=== PATIENT | male | born 1955 | race Caucasian/White ===

== ENCOUNTER 2017-11-03 15:44 | Inpatient (IN) | payer OTHER ==
[~2017-11-03] VITALS: Ht 180.3 cm; Wt 113.6 kg
--- NOTE | ~2017-11-03 | EKG ---
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 : 1955 Requested By: Sujit Escobar Order Number: [id number] MD: Sujit Escobar Measurements Intervals [place] Rate: 85 P: 48 ND: 162 QRS: 111 QRSD: 95 T: 26 QT: 367 QTc: 437 Interpretive Statements Sinus rhythm Right ventricular conduction delay Borderline T abnormalities, anterior leads Compared to ECG 08/16/2013 01:37:21 No significant change was found Electronically Signed On 11-04-2017 17:17:17 CDT by Sujit Escobar [email or web address] <ELECTRONICALLY SIGNED> By: Sujit Escobar MD, [facility] [id number] Sujit Escobar MD, [facility] /EPI
--- NOTE | ~2017-11-03 | EKG ---
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
--- NOTE | ~2017-11-03 | HC ---
[facility] [address] [place] [address] CONSULTATION Name: CAIN ALEX BRAULIO Room #: 240-[facility] IN .R.#: [id number] Admission: 11/03/17 Attend Phys: Jorge Javier MD Discharge: Date of : 55 Report #: [id number] THIS REPORT FOR: //name// CC: CHRISSY physician/PCP Jorge Javier DATE OF SERVICE: 11/03/2017 REASON FOR CONSULTATION: Chest pain. HISTORY OF PRESENT ILLNESS: The patient is a 62-year-old gentleman with a history of coronary artery disease with remote limited inferior myocardial infarction with stenting many years ago. His history includes hypertension, tobacco dependency and dyslipidemia. He recently has developed midsternal chest tightness radiating to his back and down his left arm with activity such as walking at [employer]. The symptom has become progressive. To complicate matters, the patient has a large kidney stone and plans are underway for resection, although he thought it is important to evaluate his coronary status prior to urologic evaluation. He does describe intermittent gross hematuria. Outpatient angiography today demonstrated critical distal left main stenosis of 95%. There was severe ostial circumflex disease and severe dominant mid right coronary disease with normal left ventricular systolic function. He is now admitted for consideration of surgical revascularization. There have been no heart failure symptoms including orthopnea, paroxysmal nocturnal dyspnea or lower extremity edema. Unfortunately, he continues to smoke cigarettes. He has been off of all prescription medicines including statins for many years. His outpatient evaluation has included an echocardiogram, which demonstrates normal left ventricular systolic function and mild plaquing in his carotid tree. ALLERGIES: No known drug allergies. RECENT MEDICATIONS: Include isosorbide 30 mg daily, metoprolol succinate 25 mg daily, aspirin, atorvastatin 40 mg daily, Flomax 0.4 mg daily, lvig-dga-dqsrsnh niacin and aspirin. PAST MEDICAL HISTORY: Medical records have been reviewed and include history of dyslipidemia, hypertension, probable COPD. SOCIAL HISTORY: He is an ongoing smoker, 2 packs a day. FAMILY HISTORY: Mother had coronary stents. Father had coronary stents. REVIEW OF SYSTEMS: All systems negative except as that noted above. PHYSICAL EXAMINATION: [facility] [address] [place] [address] CONSULTATION Name: CAIN ALEX BRAULIO Room #: 240-P [facility] IN ..#: [id number] Admission: 11/03/17 Attend Phys: Jorge Javier MD Discharge: Date of : 55 Report #: [id number] GENERAL: This is a pleasant gentleman who is alert, in no distress. VITAL SIGNS: Blood pressure is 112/70, heart rate of 83 and regular, 6 feet tall, 250 pounds. HEENT: There are neither xanthelasma, subcutaneous xanthomata, oral mucosal, digital cyanosis or kyphoscoliosis present. CHEST: Clear to auscultation and percussion. CARDIAC: Regular rate and rhythm with normal S1, S2. No murmurs, rubs. ABDOMEN: Soft and nontender. EXTREMITIES: Without cyanosis, clubbing or edema. Radial pulses are 2+. NEUROLOGIC: Alert with a nonfocal exam. LABORATORY DATA: Recent lipid profile: Total cholesterol 219, LDL 156, HDL 26, triglycerides 182. EKG sinus rhythm, normal tracing. IMPRESSION: 1. Progressive angina pectoris. 2. Severe distal left main stenosis with multivessel coronary artery disease; normal ejection fraction. 3. Hypertension. 4. Dyslipidemia. 5. Tobacco dependency. 6. Nephrolithiasis with hematuria. RECOMMENDATIONS: 1. Continued use of aspirin, beta blockade, nitrates, statin therapy. 2. Surgical evaluation for critical, life threatening coronary artery disease. <ELECTRONICALLY SIGNED> By: Sujit Escobar MD, FACC 11/04/17 1534 1715 2244 Sujit Escobar MD, FACC /nt
--- NOTE | ~2017-11-03 | EKG ---
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 : 1955 Requested By: Sujit Escobar Order Number: [id number] MD: Sujit Escobar Measurements Intervals [place] Rate: 90 P: 58 NE: 153 QRS: 70 QRSD: 101 T: 11 QT: 360 QTc: 441 Interpretive Statements Sinus rhythm Atrial premature complex Borderline T abnormalities, inferior leads Baseline wander in lead(s) I,II,aVR,V3 Compared to ECG 11/05/2017 08:26:56 Atrial premature complex(es) now present Electronically Signed On 11-08-2017 9:00:37 CDT by Sujit Escobar [email or web address] <ELECTRONICALLY SIGNED> By: Sujit Escobar MD, [facility] 11/08/1700 6 6 Sujit Escobar MD, [facility] /EPI
--- NOTE | ~2017-11-03 | EKG ---
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 : 1955 Requested By: Josefina Ruiz Order Number: [id number] MD: Sujit Escobar Measurements Intervals [place] Rate: 78 P: 58 NM: 148 QRS: 61 QRSD: 103 T: 29 QT: 382 QTc: 436 Interpretive Statements Sinus rhythm Nonspecific T abnormalities, anterior leads Compared to ECG 11/04/2017 16:30:50 T-wave abnormality now present Electronically Signed On 11-05-2017 12:21:51 CDT by Sujit Escobar [email or web address] <ELECTRONICALLY SIGNED> By: Sujit Escobar MD, [facility] 11/05/17 1221 5 5 Sujit Escobar MD, [facility] /EPI
--- NOTE | ~2017-11-03 | EKG ---
[address] [place] [address] ELECTROCARDIOGRAM REPORT Name: CAIN ALEX Room #: 215-P ADM IN M.R.#: [id number] Admission: 11/03/17 Attend Phys: Jorge Javier MD Discharge: Date of : 55 Report #: [id number] THIS REPORT FOR: //name// [facility] Test Date: 2017-11-08 Test Time: 06:05:52 Pat Name: CAIN ALEX Department: Room: 215 P Gender: M Supervisor Cutting Department: JACK : 1955 Requested By: Sujit Escobar Order Number: [id number] MD: Sujit Escobar Measurements Intervals [place] Rate: 81 P: 55 [place]: 148 QRS: 74 QRSD: 102 T: 24 QT: 373 QTc: 433 Interpretive Statements Sinus rhythm Nonspecific T wave abnormality Compared to ECG 11/05/2017 08:26:56 No significant change was found Electronically Signed On 11-08-2017 9:12:55 CDT by Sujit Escobar [email or web address] <ELECTRONICALLY SIGNED> By: Sujit Escobar MD, [facility] 11/08/1712 4 4 Sujit Escobar MD, FACC /EPI
--- NOTE | ~2017-11-03 | EKG ---
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
[~2017-11-03 15:44] MED LIST: ANALGESIC325 MG PO; BP MED PO; FISH OIL 1,2001 EAC3 PO; FLONASE 0.05%50 MCG NASAL; LIPITOR20 MG PO; LISINOPRIL10 MG PO; LISINOPRIL5 MG PO; NIACIN 500 MG500 M1 PO; NITROGLYCERIN0.4 MG; ZOCOR40 MG PO; ZPAK PO
[2017-11-03 18:32] LABS: ABSOLUTE NEUTROPHILS 8.3 thou/uL (1.4-8.2); BASOPHILS 0.9 % (0.0-2.0); EOSINOPHILS 1.8 % (0.0-3.0); HEMATOCRIT 48.1 % (42.0-52.0); HEMOGLOBIN 15.8 gm/dL (14.0-18.0); LYMPHOCYTES 23.1 % (24.0-44.0); MCHC 32.9 g/dL (28.0-37.0); MCV 91.1 fL (80.0-100.0); MONOCYTES 8.1 % (1.0-8.0); PLATELET COUNT 363 thou/uL (150-400); POLYS 66.1 % (36.0-66.0); RBC 5.28 mil/uL (4.50-6.00); RDW 13.6 % (10.5-14.5); WBC 12.6 thou/uL (4.0-11.0)
[2017-11-03 18:48] LABS: ALBUMIN 3.3 g/dL (3.4-5.0); ANION GAP 9 mmol/L (7-16); BUN 21 mg/dL (7-18); CHLORIDE 108 mmol/L (98-107); CHOLESTEROL 175 mg/dL (<200); CO2 26 mmol/L (21-32); CREATININE 1.2 mg/dL (0.7-1.3); GLUCOSE 128 mg/dL (74-106); HDL CHOLESTEROL 21 mg/dL (>40); LDL CHOLESTEROL 107 mg/dL (<100); POTASSIUM 3.8 mmol/L (3.5-5.1); SGOT 14 U/L (15-37); SGPT 27 U/L (30-65); SODIUM 143 mmol/L (136-145); TC:HDL 8.3 Ratio (Not establshd); TOTAL BILIRUBIN 0.7 mg/dL (<0.1-1.0); TRIGLYCERIDE 235 mg/dL (<150); VLDL 47 mg/dL (<40)
[2017-11-03 19:07] VITALS: BP 119/39
[2017-11-03 19:32] LABS: APTT 26.7 Seconds (24.5-32.8)
[2017-11-03 19:33] LABS: URINE BILIRUBIN NEGATIVE (Negative); URINE BLOOD 3+ (Negative); URINE CLARITY CLEAR; URINE COLOR YELLOW; URINE GLUCOSE-RANDOM* NEGATIVE (Negative); URINE KETONES NEGATIVE (Negative); URINE LEUKOCYTES-REFLEX NEGATIVE (Negative); URINE NITRITE-REFLEX NEGATIVE (Negative); URINE PROTEIN (DIPSTICK) NEGATIVE (Negative); URINE SPECIFIC GRAVITY 1.025 (1.005-1.035); URINE UROBILINOGEN 0.2 E.U./dl (0.2-1.0)
[2017-11-03 19:43] LABS: CASTS None Seen /LPF (None Seen); MUCUS >6 Heavy strn/LPF (None Seen); SQUAMOUS 4-10 Moderate /LPF (0-3)
[2017-11-03 19:44] LABS: BACTERIA-REFLEX None Seen /HPF (None Seen); CRYSTALS None Seen /LPF (None Seen); URINE WBC-REFLEX 0-5 Rare /HPF (0-5)
[2017-11-03] MEDS ORDERED: TOPROL XL25 MG PO ×2 (20:41→20:45)
[2017-11-03] MEDS ORDERED: IMDUR 30 MG TAB30 M1 PO (20:46)
[2017-11-03] MEDS ORDERED: FLOMAX0.4 MG PO (20:47)
[2017-11-04] VITALS: BP 105/61; BP 118/77
[2017-11-04 04:54] VITALS: BP 108/63; BP 114/55
[2017-11-04 04:54] LABS: CALCIUM 8.8 mg/dL (8.5-10.1); POTASSIUM 4.1 mmol/L (3.5-5.1)
[2017-11-04 05:08] LABS: ABSOLUTE NEUTROPHILS 7.4 thou/uL (1.4-8.2); BASOPHILS 0.5 % (0.0-2.0); EOSINOPHILS 1.9 % (0.0-3.0); HEMATOCRIT 47.5 % (42.0-52.0); HEMOGLOBIN 15.5 gm/dL (14.0-18.0); LYMPHOCYTES 29.1 % (24.0-44.0); MCHC 32.7 g/dL (28.0-37.0); MCV 91.7 fL (80.0-100.0); MONOCYTES 7.9 % (1.0-8.0); PLATELET COUNT 346 thou/uL (150-400); POLYS 60.6 % (36.0-66.0); RBC 5.18 mil/uL (4.50-6.00); RDW 13.8 % (10.5-14.5); WBC 12.1 thou/uL (4.0-11.0)
[2017-11-04 07:15] LABS: GLYCOHEMOGLOBIN (HGB A1C) 5.8 % (4.8-5.6)
[2017-11-04 13:20] LABS: MCH 30.1 pg (26.0-34.0); MCHC 32.8 g/dL (28.0-37.0); MCV 91.8 fL (80.0-100.0); RBC 4.26 mil/uL (4.50-6.00); RDW 13.4 % (10.5-14.5); WBC 21.2 thou/uL (4.0-11.0)
[2017-11-04 13:22] LABS: HEMATOCRIT 39.1 % (42.0-52.0); HEMOGLOBIN 12.8 gm/dL (14.0-18.0)
[2017-11-04 13:38] LABS: INR 1.2
[2017-11-04 13:39] LABS: PROTIME 12.6 Seconds (9.3-11.4)
[2017-11-04 13:40] LABS: APTT 25.8 Seconds (24.5-32.8); FIBRINOGEN 264.1 mg/dL (210-360)
[2017-11-04 14:22] LABS: POC BE 2 mmol/L (-2.0 to +3.0); POC CA IONIZED 4.5 mg/dL (4.5-5.3); POC GLUCOSE 120 mg/dL (70-99); POC HCO3 28.2 mmol/L (22.0-26.0); POC POTASSIUM 4.4 mmol/L (3.5-5.1); POC SODIUM 141 mmol/L (136-145); POC pCO2 52.3 mmHg (35.0-45.0)
[2017-11-04 14:22] LABS: POC BE 1 mmol/L (-2.0 to +3.0); POC CA IONIZED 4.6 mg/dL (4.5-5.3); POC GLUCOSE 126 mg/dL (70-99); POC HEMOGLOBIN 14.6 g/dL (14.0-18.0); POC POTASSIUM 4.6 mmol/L (3.5-5.1); POC SODIUM 140 mmol/L (136-145); POC pCO2 51.1 mmHg (35.0-45.0); POC pH 7.331 (7.360-7.450)
[2017-11-04 14:23] LABS: POC BE -1 mmol/L (-2.0 to +3.0); POC CA IONIZED 5.8 mg/dL (4.5-5.3); POC GLUCOSE 152 mg/dL (70-99); POC HCO3 25.6 mmol/L (22.0-26.0); POC HEMOGLOBIN 12.2 g/dL (14.0-18.0); POC POTASSIUM 4.5 mmol/L (3.5-5.1); POC SODIUM 137 mmol/L (136-145); POC pCO2 50.8 mmHg (35.0-45.0)
[2017-11-04 14:23] LABS: POC BE -1 mmol/L (-2.0 to +3.0); POC CA IONIZED 4.2 mg/dL (4.5-5.3); POC GLUCOSE 170 mg/dL (70-99); POC HCO3 25.5 mmol/L (22.0-26.0); POC HEMOGLOBIN 13.9 g/dL (14.0-18.0); POC POTASSIUM 5.4 mmol/L (3.5-5.1); POC SODIUM 139 mmol/L (136-145); POC pCO2 53.5 mmHg (35.0-45.0); POC pH 7.286 (7.360-7.450)
[2017-11-04 14:23] LABS: POC BE -11 mmol/L (-2.0 to +3.0); POC CA IONIZED 2.6 mg/dL (4.5-5.3); POC GLUCOSE 100 mg/dL (70-99); POC HCO3 15.7 mmol/L (22.0-26.0); POC HEMOGLOBIN 8.2 g/dL (14.0-18.0); POC POTASSIUM 2.5 mmol/L (3.5-5.1); POC SODIUM 154 mmol/L (136-145); POC pCO2 33.7 mmHg (35.0-45.0); POC pH 7.275 (7.360-7.450)
[2017-11-04 14:23] LABS: POC BE 2 mmol/L (-2.0 to +3.0); POC CA IONIZED 4.2 mg/dL (4.5-5.3); POC GLUCOSE 151 mg/dL (70-99); POC HCO3 27.3 mmol/L (22.0-26.0); POC HEMOGLOBIN 11.6 g/dL (14.0-18.0); POC POTASSIUM 5.4 mmol/L (3.5-5.1); POC SODIUM 137 mmol/L (136-145); POC pCO2 50.9 mmHg (35.0-45.0); POC pH 7.338 (7.360-7.450)
[2017-11-04 14:23] LABS: POC BE -1 mmol/L (-2.0 to +3.0); POC CA IONIZED 5.4 mg/dL (4.5-5.3); POC GLUCOSE 127 mg/dL (70-99); POC HCO3 25.6 mmol/L (22.0-26.0); POC HEMOGLOBIN 13.6 g/dL (14.0-18.0); POC POTASSIUM 4.5 mmol/L (3.5-5.1); POC SODIUM 140 mmol/L (136-145); POC pCO2 54.5 mmHg (35.0-45.0)
[2017-11-04 14:23] LABS: POC BE -1 mmol/L (-2.0 to +3.0); POC CA IONIZED 4.2 mg/dL (4.5-5.3); POC GLUCOSE 124 mg/dL (70-99); POC HCO3 25.3 mmol/L (22.0-26.0); POC HEMOGLOBIN 12.6 g/dL (14.0-18.0); POC POTASSIUM 4.9 mmol/L (3.5-5.1); POC SODIUM 138 mmol/L (136-145); POC pCO2 51.6 mmHg (35.0-45.0); POC pH 7.299 (7.360-7.450)
[2017-11-04 14:23] LABS: POC BE 0 mmol/L (-2.0 to +3.0); POC CA IONIZED 4.2 mg/dL (4.5-5.3); POC GLUCOSE 166 mg/dL (70-99); POC HCO3 25.5 mmol/L (22.0-26.0); POC HEMOGLOBIN 12.9 g/dL (14.0-18.0); POC POTASSIUM 5.2 mmol/L (3.5-5.1); POC SODIUM 137 mmol/L (136-145); POC pCO2 48.3 mmHg (35.0-45.0)
[2017-11-04 15:04] LABS: HEMATOCRIT 42.6 % (42.0-52.0); HEMOGLOBIN 14.3 gm/dL (14.0-18.0); MCH 30.5 pg (26.0-34.0); MCHC 33.5 g/dL (28.0-37.0); RBC 4.68 mil/uL (4.50-6.00); RDW 13.8 % (10.5-14.5); WBC 27.7 thou/uL (4.0-11.0)
[2017-11-04 15:07] LABS: BE(vivo) -4.6 mmol/L (-2 to +3); HCO3 21.8 mmol/L (22.0-26.0); PO2 51.3 mmHg (80.0-100.0); pH 7.303 (7.360-7.450); sO2 82.7 % (92.0-98.0)
[2017-11-04 15:14] LABS: CALCIUM 9.1 mg/dL (8.5-10.1); CREATININE 1.4 mg/dL (0.7-1.3); POTASSIUM 4.3 mmol/L (3.5-5.1)
[2017-11-04 15:18] LABS: APTT 29.1 Seconds (24.5-32.8); INR 1.1; PROTIME 11.2 Seconds (9.3-11.4)
[2017-11-04 15:20] LABS: BE(vivo) -2.7 mmol/L (-2 to +3); HCO3 24.5 mmol/L (22.0-26.0); PCO2 VENOUS 51.7 mmHg (41.0-51.0); PO2 VENOUS 33.4 mmHg (35.0-45.0)
[2017-11-04 19:19] LABS: HEMATOCRIT 38.9 % (42.0-52.0); HEMOGLOBIN 12.9 gm/dL (14.0-18.0); MCHC 33.3 g/dL (28.0-37.0); MCV 90.3 fL (80.0-100.0); RBC 4.31 mil/uL (4.50-6.00); RDW 13.5 % (10.5-14.5); WBC 20.6 thou/uL (4.0-11.0)
[2017-11-04 19:34] LABS: CREATININE 1.2 mg/dL (0.7-1.3); POTASSIUM 4.9 mmol/L (3.5-5.1)
[2017-11-04 19:42] VITALS: BP 94/64
[2017-11-04 21:00] VITALS: BP 106/65
[2017-11-04 22:29] LABS: BE(vivo) -3.1 mmol/L (-2 to +3); HCO3 21.8 mmol/L (22.0-26.0); PCO2 38.5 mmHg (35.0-45.0); PO2 114.2 mmHg (80.0-100.0); sO2 98.1 % (92.0-98.0)
[2017-11-05] VITALS (17 sets, daily range): BP systolic 75–145; BP diastolic 55–130
[2017-11-05 03:37] LABS: BE(vivo) -1.3 mmol/L (-2 to +3); HCO3 25.6 mmol/L (22.0-26.0); PO2 81.8 mmHg (80.0-100.0)
[2017-11-05 05:08] LABS: HEMATOCRIT 37.6 % (42.0-52.0); HEMOGLOBIN 12.4 gm/dL (14.0-18.0); MCH 30.1 pg (26.0-34.0); MCHC 32.9 g/dL (28.0-37.0); MCV 91.6 fL (80.0-100.0); RBC 4.1 mil/uL (4.50-6.00); RDW 13.7 % (10.5-14.5); WBC 14.7 thou/uL (4.0-11.0)
[2017-11-05 05:19] LABS: BE(vivo) -1.2 mmol/L (-2 to +3); HCO3 25.2 mmol/L (22.0-26.0); PCO2 48.9 mmHg (35.0-45.0); sO2 95.4 % (92.0-98.0)
[2017-11-05 05:21] LABS: CALCIUM 8.5 mg/dL (8.5-10.1); CREATININE 1.1 mg/dL (0.7-1.3); MAGNESIUM 2.3 mg/dL (1.8-2.4); POTASSIUM 4.6 mmol/L (3.5-5.1)
[2017-11-06] VITALS (20 sets, daily range): BP systolic 95–132; BP diastolic 57–78
[2017-11-07] VITALS (8 sets, daily range): BP systolic 88–116; BP diastolic 57–67
[2017-11-07 05:14] LABS: CALCIUM 8.9 mg/dL (8.5-10.1); POTASSIUM 3.9 mmol/L (3.5-5.1)
[2017-11-07 05:24] LABS: HEMATOCRIT 35.4 % (42.0-52.0); HEMOGLOBIN 11.7 gm/dL (14.0-18.0); MCH 30.3 pg (26.0-34.0); MCHC 33.1 g/dL (28.0-37.0); MCV 91.3 fL (80.0-100.0); RBC 3.88 mil/uL (4.50-6.00); RDW 13.4 % (10.5-14.5)
[2017-11-08 04:39] VITALS: BP 114/62
[2017-11-08 07:30] VITALS: BP 100/57
[2017-11-08 15:35] VITALS: BP 106/67
[2017-11-08 19:49] VITALS: BP 116/54
[2017-11-09 03:54] VITALS: BP 152/81
[2017-11-09 04:01] LABS: ABSOLUTE NEUTROPHILS 10.4 thou/uL (1.4-8.2); EOSINOPHILS 1.8 % (0.0-3.0); HEMATOCRIT 34.5 % (42.0-52.0); HEMOGLOBIN 11.5 gm/dL (14.0-18.0); LYMPHOCYTES 12.8 % (24.0-44.0); MCH 30.4 pg (26.0-34.0); MCHC 33.4 g/dL (28.0-37.0); MONOCYTES 9.9 % (1.0-8.0); POLYS 74.5 % (36.0-66.0); RBC 3.79 mil/uL (4.50-6.00); RDW 13.6 % (10.5-14.5)
[2017-11-09 04:09] LABS: CALCIUM 8.9 mg/dL (8.5-10.1); MAGNESIUM 2.2 mg/dL (1.8-2.4); POTASSIUM 3.5 mmol/L (3.5-5.1)
[2017-11-09 04:15] LABS: PLATELET COUNT 362 thou/uL (150-400)
[2017-11-09 07:43] VITALS: BP 118/70
[2017-11-09 11:35] VITALS: BP 98/62
[2017-11-09 15:22] VITALS: BP 114/71
[2017-11-09 19:44] VITALS: BP 111/63
[2017-11-10 05:32] VITALS: BP 99/62
[2017-11-10 08:00] VITALS: BP 126/78
[2017-11-10] MEDS ORDERED: PACERONE 200 M200 M1 PO (11:34)
[2017-11-10] MEDS ORDERED: LOPRESSOR50 PO (11:35)
[2017-11-10] MEDS ORDERED: LASIX 20 MG TAB20 MG PO (11:36)
[2017-11-10] MEDS ORDERED: LIPITOR80 MG PO (11:41)
[2017-11-10 12:23] VITALS: BP 126/78
[2017-11-10 12:47] VITALS: BP 116/65
== END 2017-11-10 15:00 | disposition home or self-care (01) | DRG 236 ==
LOC: 2N 15:44 → ICU 16:30 → 2N 11-06 16:33 → ENTRNSPT 11-10 14:43 → EDTRNSPTSTS 11-10 14:57 → 2N 11-10 15:00
PROVIDERS: Internal Medicine; Nurse Practitioner; Thoracic Surgery (Cardiothoracic Vascular Surgery)
DX: I25.110 Atherosclerotic heart disease of native coronary artery with unstable angina pectoris (principal); N17.9 Acute kidney failure, unspecified; D62 Acute posthemorrhagic anemia; E78.5 Hyperlipidemia, unspecified; I10 Essential (primary) hypertension; F17.210 Nicotine dependence, cigarettes, uncomplicated; N20.0 Calculus of kidney; Z60.2 Problems related to living alone; K21.9 Gastro-esophageal reflux disease without esophagitis; D72.829 Elevated white blood cell count, unspecified; E66.01 Morbid (severe) obesity due to excess calories; I48.0 Paroxysmal atrial fibrillation; Z95.5 Presence of coronary angioplasty implant and graft; Z79.899 Other long term (current) drug therapy; Z82.49 Family history of ischemic heart disease and other diseases of the circulatory system; Z79.82 Long term (current) use of aspirin; Z68.34 Body mass index [BMI] 34.0-34.9, adult
CPT/HCPCS: 10078; 10081; 10797; 47000; 47001; 47002; 47297; 50010; 50249; 50409; 50456; 50497; 50668; 51301; 52131; 52190; 52259; 52314; 53327; 54118; 55501; 56524; 56525; 56526; 56527; 56528; 56529; 56531; 56534; 56639; 56668; 56760; 56898; 57093; 62110; 62950; 64029; 65002; 65003; 65020; 65043; 65045; 65047; 65090; 65120

== ENCOUNTER → 2017-11-21 | Outpatient (CLI) | payer OTHER ==
[~2017-11-21] MED LIST changes: +FLOMAX0.4 MG PO; +IMDUR 30 MG TAB30 M1 PO; +LASIX 20 MG TAB20 MG PO; +LIPITOR80 MG PO; +LOPRESSOR50 PO; +PACERONE 200 M200 M1 PO; +TOPROL XL25 MG PO
== END ==
LOC: RAD 09:51
DX: I51.7 Cardiomegaly (principal); J90 Pleural effusion, not elsewhere classified; Z95.1 Presence of aortocoronary bypass graft